=== PATIENT | female | born 1960 | race Two or more races ===

== ENCOUNTER 2023-12-04 13:36 | Emergency (ER) | payer OTHER ==
[~2023-12-04] VITALS: Ht 162.6 cm; Wt 90.7 kg
[2023-12-04] MEDS ORDERED: XANAX1 MG (13:42)
[2023-12-04 15:23] LABS: HEMATOCRIT 37.7 % (36.0-45.00); HEMOGLOBIN 12.5 g/dL (12.0-15.00); MEAN CELL VOLUME 74.8 fL (80.00-100.00); MEAN CORPUSCULAR HEMOGLOBIN 24.7 pg (27.00-32.0); MEAN CORPUSCULAR HGB CONC 33.1 g/dl (32.0-36.0); PLATELET COUNT 240 K/uL (150-450); RED BLOOD COUNT 5.04 M/uL (4.00-6.00); RED CELL DISTRIBUTION WIDTH 15.3 % (11.5-14.5)
[2023-12-04 15:34] LABS: CALCIUM 9.4 mg/dL (8.5-10.1); CREATININE SERUM 0.91 mg/dL (0.55-1.02); GFR 62.04; POTASSIUM 3.24 mEq/L (3.5-5.1)
== END 2023-12-04 16:42 | disposition home or self-care (01) ==
LOC: ER 13:36
PROVIDERS: General Practice
DX: I21.9 Acute myocardial infarction, unspecified (principal); R55 Syncope and collapse; R42 Dizziness and giddiness; I10 Essential (primary) hypertension